=== PATIENT | female | born 1960 | race Hispanic/Latino ===

== ENCOUNTER → 2022-03-18 | Outpatient (CLI) | payer OTHER | LOC: RAH 13:08 | PROVIDERS: ATTEND Internal Medicine Cardiovascular Disease | DX: Z13.6 Encounter for screening for cardiovascular disorders (principal); I51.5 Myocardial degeneration | CPT/HCPCS: 75571 ==

== ENCOUNTER 2025-05-02 06:15 | Day surgery (SDC) | payer MEDICARE, OTHER ==
[2025-04-30 11:17] LABS: BASOPHILS # (AUTO) 0.03 K/uL (0.00-0.20); BASOPHILS % (AUTO) 0.7 % (0.0-5.0); EOSINOPHILS # (AUTO) 0.24 K/uL (0.00-0.70); EOSINOPHILS % (AUTO) 5.2 % (0.0-8.0); HEMATOCRIT 40.8 % (36-48); IMMATURE GRANULOCYTE ABSOLUTE 0.01 K/uL (0-1); LYMPHOCYTES # (AUTO) 1.8 K/uL (1.0-4.8); LYMPHOCYTES % (AUTO) 39.2 % (21.0-51.0); MEAN CORPUSCULAR HEMOGLOBIN 30.1 pg (27.0-33.0); MEAN CORPUSCULAR HGB CONC 34.3 g/dL (32.0-36.0); MEAN CORPUSCULAR VOLUME 87.7 fL (79-99); MONOCYTES # (AUTO) 0.4 K/uL (0.1-1.0); MONOCYTES % (AUTO) 7.6 % (3.0-13.0); NEUTROPHILS # (AUTO) 2.2 K/uL (1.8-7.7); NEUTROPHILS % (AUTO) 47.1 % (40.0-77.0); PLATELET COUNT (AUTO) 249 K/uL (130-400); RED BLOOD CELL COUNT(AUTO) 4.65 MIL/uL (4.00-5.50); RED CELL DISTRIBUTION WIDTH 12.8 % (11.0-15.5); WHITE BLOOD COUNT (AUTO) 4.6 K/uL (4.8-10.8)
[2025-04-30 11:28] LABS: APPEARANCE,URINE CLEAR (CLEAR); BILIRUBIN,URINE NEGATIVE (NEGATIVE); COLOR,URINE YELLOW (YELLOW); GLUCOSE, URINE (UA) NEGATIVE (NEGATIVE); KETONES,URINE NEGATIVE (NEGATIVE); LEUKOCYTE ESTERASE ,URINE NEGATIVE Leu/uL (NEGATIVE); NITRATE,URINE NEGATIVE (NEGATIVE); PROTEIN,URINE NEGATIVE (NEGATIVE); UROBILINOGEN,URINE 0.2 mg/dL (0.2-1.0)
[2025-04-30 11:31] LABS: INR 1.01 (0.85-1.15); PROTHROMBIN TIME 10.7 SEC (9.6-11.6)
[2025-04-30 11:32] LABS: BILIRUBIN,TOTAL 0.5 mg/dL (0.2-1.0); CREATININE 0.7 mg/dL (0.5-1.0); PARTIAL THROMBOPLASTIN TIME 30.2 SEC (26.3-35.5); POTASSIUM 4.3 mmol/L (3.5-5.1); TOTAL PROTEIN, SERUM 8.1 g/dL (6.0-8.3)
[2025-04-30 11:39] LABS: ADD UA MICROSCOPIC YES
[2025-04-30 11:41] LABS: MUCUS,URINE RARE LPF (None Seen); SQUAMOUS EPITHELIAL CELL,UR RARE /HPF (0-2); WBC,URINE 0-1 /HPF (0-1)
[2025-04-30 11:50] VITALS: BP 119/72; PULSE 76; RESP 17; TEMP 97.4
[~2025-05-02] VITALS: Ht 165.1 cm; Wt 70.0 kg
[2025-05-02] VITALS (13 sets, daily range): BP systolic 94–122; BP diastolic 56–75; PULSE 59–88; RESP 12–18; TEMP 97.2–97.7
[~2025-05-02 06:15] MED LIST: CALCIUM PO; FOLIC ACID PO; MVI PO
[2025-05-02] MEDS: LACTATED RINGERS 1000ML 1,000 ML IV ONE (07:01)
[2025-05-02] MEDS: ceFAZolin SODIUM 2 GM VIAL ONE (07:02)
[2025-05-02] MEDS ORDERED: ESOM40CA66 PO (07:05)
[2025-05-02] MEDS ORDERED: GABAPENTIN 300 MG CAPSULE ONE (07:06)
[2025-05-02] MEDS ORDERED: acetaMINOPHEN 100 ML ONE (07:06)
[2025-05-02] MEDS ORDERED: FAMOTIDINE 20MG VIAL IV ONE (07:06)
[2025-05-02] MEDS ORDERED: BUPIvacaine/PF 0.5% 30ML VIAL ONE (10:01)
[2025-05-02] MEDS ORDERED: LIDOCAINE PF 100MG/5ML (2%) SYRINGE 5ML ONE (10:02)
[2025-05-02] MEDS ORDERED: ketaMINE 50MG/ML SYRINGE 50 MG/ML DISP.SYRIN ONE (10:03)
[2025-05-02] MEDS ORDERED: FENTanyl CITRate PF 50 MCG/1 ML 2ML VIAL ONE (10:03)
[2025-05-02] MEDS ORDERED: rocuRONium bROMide 10MG/1ML 5ML VL ONE (10:03)
[2025-05-02] MEDS ORDERED: proPOFol 10 MG/ML 20ML VIAL IV ONE (10:03)
[2025-05-02] MEDS: ceFAZolin SODIUM 2 GM VIAL IVPB ONE (10:20)
[2025-05-02] MEDS ORDERED: dexaMETHasone SOD PHOSPHATE 10MG/ML 1ML VIAL ONE (10:34)
[2025-05-02] MEDS ORDERED: ondanSETRON 4MG INJ ONE (10:35)
[2025-05-02] MEDS ORDERED: GLYCOPYRROLATE 0.2 MG/ML 5 ML VIAL ONE (10:39)
[2025-05-02] MEDS ORDERED: NEOSTIGMINE METHYLSULFATE 1MG/ML IV ONE (10:39)
[2025-05-02] MEDS ORDERED: SUGAMMADEX SODIUM 200 MG/2 ML VIAL IV ONE (11:34)
--- NOTE | 2025-05-02 12:44 | OP ---
Operative Note: DATE OF PROCEDURE: 05/02/25 SURGEON: ALLEY URRUTIA MD HIGH DENSITY PRESS OPERATOR: [] PREOPERATIVE DIAGNOSIS: Right inguinal hernia POSTOPERATIVE DIAGNOSIS: Right direct obturator inguinal hernia anesthesia: GENERAL endotracheal Anesthesiologist: PROCEDURE: Robotic Right inguinal hernia repair with mesh INDICATIONS: Symptomatic right hernias Specimens removed: None Devices left in place: right 10x 16cm DESCRIPTION OF PROCEDURE: Patient is brought to the operating room placed on the operating table in a supine position. Once general endotracheal anesthesia is achieved patient is placed in supine position and patient's abdomen and perineum are prepped and draped in sterile fashion. We then proceeded to create a transverse incision at the left upper quadrant at Ahumada's point. And under direct visualization with Optiview went through the abdominal wall and entered the abdominal cavity. Obtain a pneumoperitoneum. Under direct visualization we proceeded to introduce two 8 mm trochars one in the right upper quadrant and one at the epigastric region just to the left of the midline and placed another 8 mm where we had a 5 mm trocar of insertion and switched it out. Placed patient in Trendelenburg and brought the robot and docked it. We then evaluated the groins there was no obvious hernia on the right . no hernia on the left. We then proceeded to create Right peritoneal flap starting laterally at the anterior iliac spine and going medially until the midline at the suprapubic region. And then brought the peritoneal flap down to expose the inguinal canal took down the hernia sac. And Started peritoneal flap going inferiorly so that are mesh would not roll up. The inguinal canal was intact and the round ligament was there. And I dissected more medially and found the hernia in the pelvis medially an obturator hernia. Reduced the hernia sac and the hernia contents. We did divide round ligament. We then placed the right inguinal 16*10cm mesh . It was secured medially at the pubic tubercle and lacunar ligament using Mcfall suture. We made sure that the mesh was inferiorly enough in the pelvis to cover the obturator defect. When we secured it. And laterally to the abdominal wall to avoid migration of the mesh. We then proceeded to close the peritoneal flap using running 2 OV lock suture. All needles were taken out. No bleeding was seen. All instruments were removed. Robot was undocked. Patient is flat. Skin incisions was closed with 4-0 Monocryl running subcuticular fashion and Dermabond was applied over top. Patient tolerated the procedure well all counts were correct x2 at the end of the procedure. ALLEY URRUTIA MD May 02, 2025 12:44
--- NOTE | 2025-05-02 12:45 | NUR ---
dressing: dermabond 3 x to upper abdomen dry/intact with no active bleeding present. no redness/swelling noted to surrounding area.
--- NOTE | 2025-05-02 13:10 | NUR ---
dressing: dermabond x 3 to upper abdomen dry/intact with no active bleeding present. no redness/swelling noted to surrounding area.
== END 2025-05-02 13:10 | disposition home or self-care (01) ==
LOC: DAH 06:15
PROVIDERS: ATTEND Student in an Organized Health Care Education/Training Program
DX: K40.90 Unilateral inguinal hernia, without obstruction or gangrene, not specified as recurrent (principal); K21.9 Gastro-esophageal reflux disease without esophagitis; Z79.01 Long term (current) use of anticoagulants; Z86.73 Personal history of transient ischemic attack (TIA), and cerebral infarction without residual deficits; Z88.8 Allergy status to other drugs, medicaments and biological substances; Z90.710 Acquired absence of both cervix and uterus; Z98.890 Other specified postprocedural states; Z79.899 Other long term (current) drug therapy
CPT/HCPCS: 80053; 85025; 85610; 85730; 81001; 36415; 49650; A6260; A4663; J7030; A4344; J7120; J3490 ×4; J3010; J1100; J2003; J2704; J2405; J2710; J0665 ×2; J0690 ×2; C1769; C1781; C1713; A5120; A4215; A4223; A4222; A4221; A4600